=== PATIENT | male | born 1970 | race Caucasian/White ===

== ENCOUNTER 2020-02-09 09:17 | Outpatient (RCR) | payer BC, SELFPAY | END 2020-04-25 11:38 | disposition home or self-care (01) | LOC: ANHDMC 09:17 | PROVIDERS: Visit Provider Physician Assistant | DX: E11.65 Type 2 diabetes mellitus with hyperglycemia (principal); Z71.89 Other specified counseling | CPT/HCPCS: G0108 ==

== ENCOUNTER 2024-10-19 12:35 | Outpatient (CLI) | payer OTHER, SELFPAY ==
--- NOTE | ~2024-10-19 | PE_ITS ---
EXAMINATION: PET_PETPSMAST_PT DATE: 10/19/2024 14:40 INDICATION: Hormone sensitive prostate cancer TECHNIQUE: 5.069 mCi of Illucix Ga-[id number]) was administered i.v. Low dose computed armando graphy (CT) images were acquired from the base of the brain to the base of the brain to the proximal thighs for attenuation correction and anatomic localization. Positron emission tomography (PET) image s were acquired in the same distribution beginning 85 minutes after injection. Images including fused PET/CT images were reconstructed in axial, coronal, and sagittal planes. Automated exposure control technique was employed. The dose-length product was 1161.77mGy-cm. COMPARISON: None FINDINGS: Head/neck: Typical pattern of symmetric physiologic increased activity in the lacrimal, parotid and submandibula r glands as well as along the mucosa of the nasal and oral cavities, pharynx and hypopharynx. No path ologically enlarged cervical lymphadenopathy or suspicious foci of increased uptake in the visualized head or neck. Chest: Mild biapical pleural-parenchymal scarring. Mild discoid atelectasis in the bilateral lower lobes. No suspicious pulmonary nodules, pneumonia, pulmonary edema or pleural effusion. Heart size is normal. No pericardial effusion. Thoracic aorta is normal in caliber. No pathologically enlarged or PET PSMA avid thoracic lymphadenopathy. Abdomen/pelvis/proximal thighs: Physiologic renal accumulation and excretion of activity in the kidneys, bladder and along portions o f ureters. Small focus of increased uptake with maximal SUV of 10.2 at the left posterior aspect of t he enlarged prostate which measures 4.9 x 3.7 cm. Normal degree and slightly heterogenous pattern of increased uptake throughout the liver and spleen without radiologic correlate or dominant PSMA avid l esion. The gallbladder, pancreas and bilateral adrenal glands are normal. Moderate uptake scattered t hroughout the bowels with typical duodenal and proximal jejunal predominance and without radiologic c orrelate, also likely physiologic. No other abnormal foci of increased uptake or pathologically enlar ged lymphadenopathy in the abdomen, pelvis or proximal thighs. Musculoskeletal: Mild lumbar dextrocurvature with mild spondylosis. Chronic appearing mild anterior wedging at L1. No suspicious lytic, blastic or abnormally PSMA avid bone lesions. IMPRESSION: 1. Small focus of moderate increased uptake at the left posterior aspect of the enlarged prostate con sistent with primary prostate cancer. No lesion suspicious for metastatic disease. Reviewed, dictated and finalized at location A. IMPRESSION: 1. Small focus of moderate increased uptake at the left posterior aspect of the enlarged prostate consistent with primary prostate cancer. No lesion suspiciou s for metastatic disease.
--- OUTSIDE RECORDS SUMMARY | 2024-10-19 13:48 | XMS_ITS | Encounter Summary ---
Author Organization [facility] Address [address] [place] [address] Phone Care Team Providers Care Med Specialist Name Role Phone Leona Dockery MD Primary Care Provider [phone] Reason for Visit * Reason Onset Date Comments pump issue 10/19/2024 Encounter Details Date Type Department Care Team (Late st Contact Info) Description 10/19/2024 Telephone [facility] Endocrinology Metabolism and Lipid [address] [place] [address] Medical Office Building [address], [address] [place] [address] Blanca Quintero RN pump issue Social History Tobacco Use Types Packs/Day Years Used Date Smoking Tobacco: Former Cigarettes Smokeless Tobacco: Never Alcohol Use Standard Drinks/Week Comments No 0 (1 standard drink = 0.6 oz pur e alcohol) Sex and Gender Information Value Date Recorded Sex Assigned at Not on file Legal Sex Male 12:47 AM RN CLINICAL COORDINATOR Gender Identity Not on file Sexual Orientation Not on file documented as of this encounter Miscellaneous Notes * Telephone Encounter - Blanca Quintero RN - 10/19/2024 9:36 AM CDT The patient's pump failed since he ran out of memory on his phone He is getting is fixed today and needed his pump setting I sent him a message in [employer] with his gloZoundso pump settings along with giving him the pro-connectcode for the clinic documented in this encounter Plan of Treatment Not on file documented as of this encounter Visit Diagnoses Not on filedocumented in this encounter Care Teams Med Specialist Relationship Specialty Start Date End Date Leona Dockery MD [address] [place] [address] PCP - General Internal Medicine 02/21/24 documented as of this encounter
--- OUTSIDE RECORDS SUMMARY | 2024-10-19 13:48 | XMS_ITS | Clinical Summary ---
Author Organization [facility] Address [address] [place] [address] Care Team Providers Care Civil Engineer Name Role Phone Elliott Muro MD Primary Care Provider [phone] Allergies No known active allergies Medications Glucose Blood test strip 07/27/19 14 Active insulin lispro (HUMALOG) 100 UNIT/ML injection (PEN)Indications:7 -8 units up to tid 04/24/20 13 Active rosuvastatin (CRESTOR) 5 MG tabletIndications: Hyperlipidemia, unspecified hyperlipidemia type Take 1 tablet (5 mg total) by mouth nightly at bedtime. 30 tablet 3 05/12/20 24 Active Insulin Disposable Pump (OMNIPOD 5 [id number] PODS GEN 5) MiscIndications:Ty pe 2 diabetes mellitus with diabetic neuropathy, without long-term current use of insulin ([facility] HHS/HCC) 1 each by Other route every 3 (three) days. 20 each 05/12/20 24 Active insulin lispro (HUMALOG/ADMELOG) 100 UNIT/ML injection (VIAL)Indications: Type 2 diabetes mellitus with diabetic neuropathy, without long-term current use of insulin (CMS/HCC HHS/HCC) Per insulin pump not to exceed 100 units per day. 60 mL 05/12/20 24 Active Continuous Glucose Sensor (DEXCOM G6 SENSOR) MiscIndications:Ty pe 2 diabetes mellitus with diabetic neuropathy, without long-term current use of insulin (CMS/HCC HHS/HCC) 1 each by Other route every 10 (ten) days. 6 each 05/18/20 24 Active Continuous Glucose Transmitter (DEXCOM G6 TRANSMITTER) MiscIndications:Ty pe 2 diabetes mellitus with diabetic neuropathy, without long-term current use of insulin ([facility]) 1 each by Other route see administration instructions. 1 each 2 06/08/20 24 Active LANTUS SOLOSTAR 100 UNIT/ML injection (PEN) INJECT 40 UNITS SUBCUTANEOUSLY ONCE DAILY IN AN EMERGENCY WITH INSULIN OFF PUMP PLAN. TOTAL DAILY DOSE OF 40 UNITS 08/10/19 25 Active sildenafil (VIAGRA) 100 MG tabletIndications: Erectile disorder due to medical condition in male Take 1 tablet (100 mg total) by mouth as needed for Erectile Dysfunction. 6 tablet 5 09/11/19 25 Active hydrOXYzine (ATARAX) 25 MG tabletIndications: Anxiety Take 1 tablet (25 mg total) by mouth nightly as needed for Itching. 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) 09/10/2024 Mixed hyperlipidemia 09/10/2024 Marijuana use 09/10/2024 Onychomycosis 09/10/2022 Splinter in skin 10/02/2021 Erectile disorder due to medical condition in ma le 06/22/2019 Type 2 diabetes mellitus wit h diabetic neuropathy, without long-term current use of insulin ([facility]) 11/21/2013 Overview (03/07/2020): Overview: DMII WO CMP UNCNTRLD Lumbago 06/09/2013 Resolved Problems Problem Noted Date Diagnosed Date Resolved Date Prostate cancer screening 06/22/2019 Erection pain 08/20/2017 10/06/2018 Encounters Date Type Department Care Team Description 09/10/2024 7:40 AM ASSISTANT IMPORT MANAGER Office Visit [facility] Family & Internal Medicine - [place] [id number] [place] [address] Elliott Muro MD Diabetes (4 month follow up diabetes / medication) 09/10/2024 Travel from Last 3 Months Immunizations Immunization Administration Dates Next Due Fluarix (IIV4) 06/14/2020 Fluzone Adult - >Age 3 (Pref illed Syringe) 09/10/2022(Deferred: Patient Refused) Influenza (Generic) 05/10/2024 Influenza Adult (Generic) 05/19/2023,04/08/2022, 06/14/2020 Td (Tenivac) preservative free 1968 Tdap (Adacel) 03/07/2020 Family History Medical History Relation Comments Diabetes Father overweight Mother Relation Status Comments Father Mother Alive Social History Tobacco Use Types Packs/Day Years Used Date Smoking Tobacco: Former Cigarettes 1.5 30 1 988 - 2018 Smokeless Tobacco: Former Chew Tobacco Cessation:Counseling Given: No Comments:A pack a day Alcohol Use Standard Drinks/Week Comments No 0 (1 standard drink = 0.6 oz pur e alcohol) AUDIT-C Answer Date Recorded Frequency of Alcohol Consumption Never 10/03/2018 Average Number of Drinks Not on file 019 Frequency of Binge Drinking Not on file 09/06 PHQ-2 Answer Date Recorded Patient Health Questionnaire-2 Score 0 09/10/2024 Education Answer Date Recorded What is the highest level of school you have completed or the highest degree you have received? High school graduate 10/06/2018 Sex and Gender Information Value Date Recorded Sex Assigned at Male 09/10/2024 8:00 AM ASSISTANT IMPORT MANAGER Legal Sex Male 5:09 PM CDT Gender Identity Male 09/10/2024 8:00 AM ASSISTANT IMPORT MANAGER Sexual Orientation Straight 09/10/2024 8: 00 AM ASSISTANT IMPORT MANAGER Last Filed Vital Signs Vital Sign Reading Time Taken Comments Blood Pressure 138/89 09/10/2024 8:06 AM ASSISTANT IMPORT MANAGER Pulse 77 09/10/2024 8:06 AM ASSISTANT IMPORT MANAGER Temperature 36.3 C (97.4 F) 09/10/2024 8:00 AM ASSISTANT IMPORT MANAGER Respiratory Rate 16 09/10/2024 8:00 AM ASSISTANT IMPORT MANAGER Oxygen Saturation 97% 09/10/2024 8:00 AM ASSISTANT IMPORT MANAGER Inhaled Oxygen Concentration - - Weight 96.1 kg (211 lb 12.8 oz) 09/10/2024 8:00 AM ASSISTANT IMPORT MANAGER Height 188 cm (6' 2 ) 09/10/2024 8:00 AM ASSISTANT IMPORT MANAGER Body Mass Index 27.19 09/10/2024 8:00 AM ASSISTANT IMPORT MANAGER Plan of Treatment Health Maintenance Due Date Last Done Comments Annual Physical 1971 Pneumococcal Vaccine: Pediatrics (0 to 5 Years) and At-Risk Patients (6 to 49 Years) (1 of 2 - PCV) 1974 Diabetes: Retinopathy Eye Exam 1986 Hepatitis B Vaccines (1 of 3 - 19+ 3-dose series) 1987 Lung Cancer Screening 2018 Zoster Vaccines (1 of 2) 2018 COVID-19 Vaccine ( - season) 2024 04/08/2022, 06/24/2021, 09/19/2020 Hemoglobin A1C 11/09/2024 05/12/2024, 02/11/2018 Kidney Health Evaluation 05/12/2025 05/12/2024 Lipid Panel 05/12/2025 05/12/2024, 03/07/2020 Colorectal Cancer Screening FIT-DNA (3 Years) 06/15/2027 06/15/2024, 06/15/2024, 03/17/2020, Additional history exists DTaP, Tdap and Td Vaccines (2 - Td or Tdap) 03/07/2030 03/07/2020, 1968 Hepatitis C Completed 05/11/2019 PHQ-2 (Physician [place]) Completed 09/10/2024 Meningococcal B Vaccine Aged Out No l onger eligible based on patient's age to complete this topic Meningococcal Vaccine Aged Out No flores carmen eligible based on patient's age to complete this topic RSV Immunizations Under 20 Months Aged Out No longer eligible based on patient's age to complete this topic Procedures Procedure Name Priority Date/Time Associated Diagnosis Comments COLOGUARD (EXACT SCIENCE) Routine 06/15/2024 6:28 AM ASSISTANT IMPORT MANAGER Encounter for screening colonoscopy LIPID PANEL Routine 05/12/2024 9:26 AM ASSISTANT IMPORT MANAGER Type 1 diabetes mellitus without complication ([facility] HHS/HCC) HEMOGLOBIN, GLYCOSYLATED Routine 05/12/2024 9:26 AM ASSISTANT IMPORT MANAGER Type 1 diabetes mellitus without complication ([facility] HHS/HCC) HEPATITIS C ANTIBODY Routine 05/11/2019 11:58 AM ASSISTANT IMPORT MANAGER Screening for venereal disease from Last 3 Months or Most Recently Relevant to Health Maintenance Results * COLOGUARD (EXACT SCIENCE) (06/15/2024 6:28 AM ASSISTANT IMPORT MANAGER) COLOGUARD RESULT Negative Negative [employer] (CLIA #:[id number]) Comment: NEGATIVE TEST RESULT. A negative Cologuard result indicates a low likelihood that a colorectal cancer (CRC) or advanced adenoma (adenomatous polyps with more advanced pre-malignant features) is present. The chance that a person with a negative Cologuard test has a colorectal cancer is less than 1 in 1500 (negative predictive value >99.9%) or has an advanced adenoma is less than 5.3% (negative predictive value 94.7%). These data are based on a prospective cross-sectional study of 10,000 individuals at average risk for colorectal cancer who were screened with both Cologuard and colonoscopy. (Pablo Mcgrath. et al, N Engl J Med 2014;370(14):7763-1557) The normal value (reference range) for this assay is negative. COLOGUARD RE-SCREENING RECOMMENDATION: Periodic colorectal cancer screening is an important part of preventive healthcare for asymptomatic individuals at average risk for colorectal cancer. Following a negative Cologuard result, the [place] [employer] Society and U.S. Multi-Society Task Force screening guidelines recommend a Cologuard re-screening interval of 3 years. References: [place] [employer] Guideline for Colorectal Cancer Screening: https://www.cancer.org/cancer/cxqoc-qpecbp-yuygok/mgkwrimzp-lxudevcwn-gttbgpw/ac s-rec ommendations.html.; Raúl CEDILLO, Naina STAPLETON, Shilpa WhyteK, Colorectal Cancer Screening: Recommendations for Physicians and Patients from the U.S. Multi-Society Task Force on Colorectal Cancer Screening , Am J Gastroenterology 2017; 112:9458-9742. TEST DESCRIPTION: Composite algorithmic analysis of stool DNA-biomarkers with hemoglobin immunoassay. Quantitative values of individual biomarkers are not reportable and are not associated with individual biomarker result reference ranges. Cologuard is intended for colorectal cancer screening of adults of either sex, 45 years or older, who are at average-risk for colorectal cancer (CRC). Cologuard has been approved for use by the U.S. FDA. The performance of Cologuard was established in a cross sectional study of average-risk adults aged 50-84. Cologuard performance in patients ages 45 to 49 years was estimated by sub-group analysis of near-age groups. Colonoscopies performed for a positive result may find as the most clinically significant lesion: colorectal cancer [4.0%], advanced adenoma (including sessile serrated polyps greater than or equal to 1cm diameter) [20%] or non- advanced adenoma [31%]; or no colorectal neoplasia [45%]. These estimates are derived from a prospective cross-sectional screening study of 10,000 individuals at average risk for colorectal cancer who were screened with both Cologuard and colonoscopy. (Pablo Valderrama al, N Engl J Med 2014;370(14):7291-9507.) Cologuard may produce a false negative or false positive result (no colorectal cancer or precancerous polyp present at colonoscopy follow up). A negative Cologuard test result does not guarantee the absence of CRC or advanced adenoma (pre-cancer). The current Cologuard screening interval is every 3 years. ([place] [employer] and U.S. Multi-Society Task Force). Cologuard performance data in a 10,000 patient pivotal study using colonoscopy as the reference method can be accessed at the following location: www.[facility] [facility]/results. Additional description of the Cologuard test process, warnings and precautions can be found at www.[employer].com. STOOL STOOL SPECIMEN / Unknown 06/15/2024 6:28 AM ASSISTANT IMPORT MANAGER 06/16/2024 9:15 AM ASSISTANT IMPORT MANAGER Elliott Muro MD BODY FLUIDS AND STOOLS TARA VAUGHAN Final Result [email or web address] ([employer] [address] [facility]) [address] [place] [address], [employer] (CLIA #:[id number]) [address] [place] [address] * (ABNORMAL) HEMOGLOBIN, GLYCOSYLATED (05/12/2024 9:26 AM ASSISTANT IMPORT MANAGER) HGB A1C 8.3(H) <5.7 % 05/12/2024 12:29 PM ASSISTANT IMPORT MANAGER [facility] () [facility] Comment: INCREASED RISK OF DIABETES <5.7% NON-DIABETES 5.7-6.4% INCREASED RISK FOR FUTURE DIABETES > OR = 6.5 CONSISTENT WITH DIABETES STANDARDS OF MEDICAL CARE IN DIABETES-2010 DIABETES CARE, 33(SUPP 1): S1-S61,2010 ESTIMATED AVG GLUCOSE 192 mg/dL 05/12/2024 12:29 PM [facility] 05/12/2024 9:26 AM ASSISTANT IMPORT MANAGER us Elliott Muro MD LABORATORY Final Resul t [facility] [address] [place] [address], * LIPID PANEL (05/12/2024 9:26 AM ASSISTANT IMPORT MANAGER) CHOLESTEROL 149 <200.0 MG/DL 05/12/2024 1:25 PM [facility] TRIGLYCERIDES 37 <150 MG/DL 05/12/2024 1:25 PM [facility] HDL 62 >40.0 MG/DL 05/12/2024 1:25 PM [facility] LDL (CALCULATED) 80 <100 MG/DL 05/12/20 24 1:25 PM [facility] NON HDL CHOLESTEROL 87 <130 MG/DL 05/12 1:25 PM [facility] CHOL/HDL RATIO 2.4 0.0 - 4.5 05/12/2024 1:25 PM [facility] VLDL CALCULATION 7 5 - 55 MG/DL 05/12/2024 1:25 PM [facility] LIPID INTERPRETATION 05/12/2024 1:25 PM [facility] Comment: NIH CONCENSUS REPORT RECOMMENDATIONS: ADULT CHILD LOW RISK: CHOLESTEROL <200 <170 TRIGLYCERIDE <150 --- HDL >=60 --- LDL <100 <110 BORDERLINE: CHOLESTEROL 200-239 170-199 TRIGLYCERIDE 150-199 --- HDL 40-59 --- LDL 100-159 110-129 HIGH RISK: CHOLESTEROL >=240 >=200 TRIGLYCERIDE >=200 --- HDL <40 --- LDL >=160 >=130 05/12/2024 9:26 AM ASSISTANT IMPORT MANAGER Elliott Muro MD LABORATORY Final Resul t [facility] [address] [place] [address], [place] [phone] * HEPATITIS C ANTIBODY (05/11/2019 11:58 AM ASSISTANT IMPORT MANAGER) HEPATITIS C AB NON-REACTI VE NON-REACTI VE 05/11/2019 3:01 [address] [facility] 05/11/2019 11:5 8 AM ASSISTANT IMPORT MANAGER Carlos Durand MD LABORATORY Final Result Performing Organization Address City/[facility] Co de Phone Number [facility] [address] [place] [address], [place] [phone] from Last 3 Months or Most Recently Relevant to Health Maintenance Insurance [facility] Care Teams Civil Engineer Relationship Specialty [place] [address] [facility] [address] PCP - General INTERNAL MEDICINE 05/11/24
--- OUTSIDE RECORDS SUMMARY | 2024-10-19 13:48 | XMS_ITS | Encounter Summary ---
Author Organization [facility] Address [address] [place] [address] Care Team Providers Care Metal Drill Press Operator Name Role Phone Elliott Muro MD Primary Care Provider [phone] Encounter Details Date Type Department Care Team (Late st Contact Info) Description 05/13/2024 [place] Message Enc [facility] Medical Group Family & Internal Medicine [address] [address] [place], [facility] Provider referral Social History Tobacco Use Types Packs/Day Years Used Date Smoking Tobacco: Former Cigarettes 1.5 30 1 988 2017 Smokeless Tobacco: Former Chew Alcohol Use Standard Drinks/Week Comments No 0 (1 standard drink = 0.6 oz pur e alcohol) AUDIT-C Answer Date Recorded Frequency of Alcohol Consumption Never 10/03/2018 Average Number of Drinks Not on file 019 Frequency of Binge Drinking Not on file 09/06 PHQ-2 Answer Date Recorded Patient Health Questionnaire-2 Score 0 05/12/2024 Education Answer Date Recorded What is the highest level of school you have completed or the highest degree you have received? High school graduate 10/06/2018 Sex and Gender Information Value Date Recorded Sex Assigned at Male 09/10/2024 8:00 AM LEI SELLER Legal Sex Male 5:09 PM CDT Gender Identity Male 09/10/2024 8:00 AM LEI SELLER Sexual Orientation Straight 09/10/2024 8: 00 AM LEI SELLER documented as of this encounter Plan of Treatment Not on file documented as of this encounter Visit Diagnoses Not on filedocumented in this encounter Additional Health Concerns Infection Onset Date Last Indicated Resolved Time COVID-19 Rule Out 07/15/2024 07/15/2024 07/15/2024 1:28 PM LEI SELLER COVID-19 Confirmed 07/15/2024 07/15/2024 12:32 AM LEI SELLER Assessment Noted Time PHQ-9 Depression Total Score: 0 05/12/20 9:31 AM LEI SELLER documented as of this encounter Care Teams Metal Drill Press Operator Relationship Specialty [place] [address] [address] PCP - General INTERNAL MEDICINE 05/11/24 documented as of this encounter
--- OUTSIDE RECORDS SUMMARY | 2024-10-19 13:48 | XMS_ITS | Clinical Summary ---
Author Organization [facility] Address [address] [place] [address] Care Team Providers Care Auto Service Station Attendant Name Role Phone Leona Dockery MD Primary Care Provider [phone] Allergies No known active allergies Medications rosuvastatin (CRESTOR) 5 mg tablet Take 1 tablet (5 mg total) by mouth daily 4 Active insulin lispro (HumaLOG, ADMELOG) 100 unit/mL vial for injectionIndicat ions:Type 1 diabetes mellitus with complication, with long-term current use of insulin (HCC) Inject via insulin pump. Max daily dose 70 units. 70 mL 3 5 Active Dexcom G6 Sensor deviceIndication s:Type 1 diabetes mellitus with complication, with long-term current use of insulin (HCC) Change sensor every 10 days 9 each 3 5 Active Omnipod 5 G6-G7 Pods, Gen 5, cartridgeIndicat ions:Type 1 diabetes mellitus with complication, with long-term current use of insulin (HCC) Change pod every 3 days 30 each 3 5 Active Dexcom G6 Transmitter deviceIndication s:Type 1 diabetes mellitus with complication, with long-term current use of insulin (HCC) Change every 3 months 1 each 2 5 Active insulin glargine (LANTUS) 100 unit/mL (3 mL) pen for injection Inject 40 units. 1 times per day in an emergency with insulin off pump plan TDD 40 units. 15 mL 1 5 Active hydrOXYzine (ATARAX) 25 mg tablet Take 1 tablet (25 mg total) by mouth nightly as needed 5 Active albuterol HFA (PROVENTIL HFA,VENTOLIN HFA,PROAIR HFA) 90 mcg/actuation inhaler 2 puffs every 4 (four) hours as needed 5 Active insulin lispro (HumaLOG, ADMELOG) 100 unit/mL pen for injection Inject as back up for insulin pump at 1:9 carb ratio with meals, snacks. TDD 40 units 6 mL 5 Active Active Problems Problem Noted Date Diagnosed Date Type 2 diabetes mellitus 11/21/2013 Overview (10/12/2016): DMII WO CMP UNCNTRJOAO Lumbago 06/09/2013 Encounters Date Type Department Care Team Description 10/19/2024 Telephone [facility] Endocrinology Metabolism and Lipid [address] [place] [address] Blanca Quintero RN pump issue 10/05/2024 11:40 AM CDT Office Visit [facility] Endocrinology Metabolism and Lipid [address] [facility] [address] [place] [address] Suzie Hardy MD Type 1 diabetes mellitus with complication, with long-term current use of insulin (HCC) (Primary Dx); Mixed hyperlipidemia; Hyperkalemia 08/10/2024 8:00 AM SANDWICH AND DRINK CART OPERATOR Clinical Support [facility] Endocrinology Metabolism and Lipid [address] [facility] 13th [place] [address] [place] [address] Type 1 diabetes mellitus with complication, with long-term current use of insulin (HCC) from Last 3 Months Medical History Medical History Date Comments Diabetes mellitus (HCC) Diabetes Family History Medical History Relation Name Comments Diabetes type I Brother Diabetes -Ty pe I; Hypertension Other Family history of Hypertension; Relation Name Status Comments Brother Other Social History Tobacco Use Types Packs/Day Years Used Date Smoking Tobacco: Former Cigarettes Smokeless Tobacco: Never Tobacco Cessation:Counseling Given: Not Answered Alcohol Use Standard Drinks/Week Comments No 0 (1 standard drink = 0.6 oz pur e alcohol) Sex and Gender Information Value Date Recorded Sex Assigned at Not on file Legal Sex Male 12:47 AM SANDWICH AND DRINK CART OPERATOR Gender Identity Not on file Sexual Orientation Not on file Obstetrics History Last Filed Vital Signs Vital Sign Reading Time Taken Comments Blood Pressure 124/78 10/05/2024 11:27 AM CDT Pulse 79 10/05/2024 11:27 AM CDT Temperature 36.7 C (98 F) 10/05/2024 11:27 AM CDT Respiratory Rate - - Oxygen Saturation - - Inhaled Oxygen Concentration - - Weight 93.5 kg (206 lb 3.2 oz) 10/05/2024 11:27 AM CDT Height 188 cm (6' 2 ) 10/05/2024 11:27 AM CDT Body Mass Index 26.47 10/05/2024 11:27 AM CDT Plan of Treatment Health Maintenance Due Date Last Done Comments Albumin Creatinine Ratio, Urine 1968 Colon Cancer Screening-Colonoscopy 1968 Depression Screening 1968 Foot Exam 1968 Hepatitis C Screening 1968 Prostate Cancer Screening-PSA 1968 eGFR 1968 Dilated Eye Exam 1978 Hepatitis B Screening 1986 Regular Well Visit/Exam 18-64 1986 Pneumococcal vaccine <65 (1 of 2 - PCV) 1987 Zoster Vaccine (1 of 2) 2018 Covid-19 Vaccine (4 - 2023-2 5 season) 2024 04/08/2022, 06/24/2021, 09/19/2020 Hemoglobin A1C 04/06/2025 10/05/2024 Lipid Panel 05/12/2025 05/12/2024 TSH Level 05/12/2025 05/12/2024 DTaP/Tdap/Td Vaccine (2 - Td or Tdap) 03/07/2030 03/07/2020, 1968 Influenza Vaccine Completed 05/10/2024, , 04/08/2022, Additional history exists Procedures Procedure Name Priority Date/Time Associated Diagnosis Comments POCT HEMOGLOBIN A1C Routine 10/05/2024 1 1:38 AM CDT Type 1 diabetes mellitus with complication, with long-term current use of insulin (HCC) from Last 3 Months Results * POCT hemoglobin A1c (10/05/2024 11:38 AM CDT) Hemoglobin A1C, POC 8.0 4.0 - 5.6 % Blood 10/05/2024 11:3 8 AM CDT Suzie Mora MD POINT OF CARE TEST ORDERAB LES Final Result from Last 3 Months Insurance [facility] H[facility]PP[place]: [place] [address] Care Teams Auto Service Station Attendant Relationship Specialty Start Date End Date Leona Dockery MD [address] [place] [address] PCP - General Internal Medicine 02/21/24
--- OUTSIDE RECORDS SUMMARY | 2024-10-19 13:48 | XMS_ITS | Referral Summary ---
Author Organization [facility] Address [address] [place] [address] Care Team Providers Care Air Quality Engineer Name Role Phone Leona Dockery MD Primary Care Provider [phone] Encounters Date Type Department Care Team Description 10/19/2024 Telephone [facility] Endocrinology Metabolism and Lipid [address] [facility] [address], [address] [place] [address] Blanca Quintero, RN pump issue 10/05/2024 11:40 AM CDT Office Visit [facility] Endocrinology Metabolism and Lipid [address] [facility] [address] [place] [address] Suzie Hardy MD Type 1 diabetes mellitus with complication, with long-term current use of insulin (HCC) (Primary Dx); Mixed hyperlipidemia; Hyperkalemia 08/10/2024 8: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 13[address] [place] [address] [place] [address] Type 1 diabetes mellitus with complication, with long-term current use of insulin (HCC) from Last 3 Months Allergies No known active allergies Medications rosuvastatin [...] mellitus 11/21/2013 Overview (10/12/2016): DMII WO CMP UNCNTRLD Lumbago 06/09/2013 Social History Tobacco Use Types Packs/Day Years Used Date Smoking Tobacco: Former Cigarettes Smokeless Tobacco: Never Tobacco Cessation:Counseling Given: Not Answered Alcohol Use Standard Drinks/Week Comments No 0 (1 standard drink = 0.6 oz pur e alcohol) Sex and Gender Information Value Date Recorded Sex Assigned at Not on file Legal Sex Male 12:47 AM MAINTENANCE TECHNICIAN Gender Identity Not on file Sexual Orientation Not on file Last Filed Vital Signs Vital Sign Reading [...] 10/05/2024 11:27 AM CDT Plan of Treatment Not on file Procedures Procedure Name Priority Date/Time Associated Diagnosis Comments POCT HEMOGLOBIN A1C Routine 10/05/2024 1 1:38 AM CDT Type 1 diabetes mellitus with complication, with long-term current use of insulin (HCC) from Last 3 Months Results * POCT hemoglobin A1c (10/05/2024 11:38 AM CDT) Hemoglobin A1C, POC 8.0 4.0 - 5.6 % Blood 10/05/2024 11:3 8 AM CDT us Suzie Mora MD POINT OF CARE TEST ORDERAB LES Final Result from Last 3 Months Insurance [facility] CHOICE [employer] [facility] H[facility]/PPO Address: [facility] [id number] [place] [address] Care Teams Air Quality Engineer Relationship Specialty Start Date End Date Leona Dockery MD [address] [place] [address] PCP - General Internal Medicine 02/21/24
== END 2024-10-19 12:36 | disposition home or self-care (01) ==
PROVIDERS: PCP Internal Medicine; Visit Provider Urology
DX: N40.0 Benign prostatic hyperplasia without lower urinary tract symptoms (principal); Z19.1 Hormone sensitive malignancy status
CPT/HCPCS: 78815; A9596